=== PATIENT | male | born 1945 | race Caucasian/White ===

== ENCOUNTER 2021-09-04 13:43 | Emergency (ER) | payer MEDICARE ==
[2021-09-04 14:19] LABS: #Basophils 0.1 thou/uL (0.0-0.2); #Eosinphils 0.1 thou/uL (0.0-0.7); #Lymphocytes 1.6 thou/uL (1.20-3.40); #Neutrophils 9.3 thou/uL (1.40-6.50); %Basophils 0.5 % (0.0-1.0); %Eosinophils 0.9 % (0.0-10.0); %Lymphocytes 13.4 % (21.0-51.0); %Monocytes 7.8 % (0.0-10.0); %Neutrophils 77.3 % (42.0-75.0); Hemoglobin 14.7 g/dL (14.0-18.0); Mean Corpuscular HGB CONC 34.7 g/dL (32.0-36.0); Mean Corpuscular Hemoglobin 32.2 pg (27.0-31.0); Mean Platelet Volume 7.6 fL (7.4-10.4); Platelet Count 268 thou/uL (130-400); RBC Distribution Width 12.3 % (11.5-14.5); Red Blood Cell (RBC) Count 4.56 mill/uL (4.70-6.10); White Blood Cell (WBC) Count 12.1 thou/uL (4.8-10.8)
[2021-09-04 14:27] LABS: Prothrombin Time 12.8 sec (12.0-14.7)
[2021-09-04 14:28] LABS: PTT 33.8 sec (22.9-36.1)
[2021-09-04] MEDS ORDERED: Pantoprazole 40 MG VIAL ONE (14:30)
[2021-09-04 14:36] LABS: ALT (SGPT) 20 U/L (8-55); AST (SGOT) 19 U/L (5-34); Albumin 4.2 g/dL (3.4-4.8); Alkaline Phosphatase 122 U/L (40-110); Anion Gap 17 mmol/L (10-20); BUN (Urea Nitrogen) 14 mg/dL (8.4-25.7); Bilirubin, Total 0.5 mg/dL (0.2-1.2); Calc. Creatinine Clearance 0 mL/min (70-130); Carbon Dioxide 26 mmol/L (23-31); Chloride 103 mmol/L (98-107); Glucose 108 mg/dL (83-110); Potassium 3.8 mmol/L (3.5-5.1); Protein, Total 7.2 g/dL (5.8-8.1); Sodium 142 mmol/L (136-145)
== END 2021-09-04 15:58 | disposition short-term general hospital (02) ==
LOC: BURERS 13:43
DX: K92.2 Gastrointestinal hemorrhage, unspecified (principal); I10 Essential (primary) hypertension; E66.9 Obesity, unspecified; F17.210 Nicotine dependence, cigarettes, uncomplicated
CPT/HCPCS: 36415; 80053; 82274; 85025; 85610; 85730; 96374; C9113